=== PATIENT | female | born 1985 | race Caucasian/White ===

== ENCOUNTER → 2016-12-09 | Outpatient (CLI) | payer OTHER ==
[~2016-12-09] MED LIST: DILAUDID2 MG PO; FLINTSTONES COM1 CTB PO; ZANTAC 150150 MG PO
[2016-12-09 12:42] LABS: HEMOGLOBIN 13.8 g/dL (12.2-16.2); LYMPH # 2.8 K/mm3 (0.7-4.5); LYMPH % 26.9 % (10-50.0)
[2016-12-09 14:11] LABS: ABO BLOOD TYPE A; RH BLOOD TYPE POSITIVE
[2016-12-10 06:37] LABS: Rubella Antibodies, IgG 1.91 index (Immune >0.99)
[2016-12-10 08:49] LABS: HBsAg Screen Negative (Negative); HIV Screen 4th Generation wRfx Non Reactive (Non Reactive); Rapid Plasma Reagin, Quant Non Reactive (NonRea<1:1)
== END ==
LOC: LAB 12:20
PROVIDERS: Nurse Practitioner Obstetrics & Gynecology
DX: Z34.80 Encounter for supervision of other normal pregnancy, unspecified trimester (principal)
CPT/HCPCS: G0432

== ENCOUNTER → 2017-03-25 | Outpatient (CLI) | payer OTHER ==
--- NOTE | 2017-03-25 16:26 | RADIOLOGY REPORT PS360 ---
US PREG COMP: INDICATION: 20 WEEK ANATOMICAL SURVEY ORDERING PHYSICIAN: Fabián Lloyd MD PATIENT AGE: 31 years TECHNIQUE: ultrasound transabdominal scanning. COMPARISON: No previous relevant studies. FINDINGS: Single viable intrauterine gestation. Cephalic position. Placenta: Posterior placenta grade 1. There is average amount fluid. The cervix appears satisfactory. Closed and measuring 5 cm in length. Complete survey performed and was unremarkable on the submitted images as in PACS. No discrete anomalies identified on survey imaging by technologist. Active fetus. Three-vessel cord with satisfactory umbilical cord insertion. 4- chamber heart noted. Survey of brain & ventricles. Face and neck survey unremarkable. Diaphragm and chest views unremarkable. Abdomen: Both kidneys noted and unremarkable. Stomach noted and satisfactory. Spine: Survey of the spine satisfactory with no anomalies identified nor imaged. Both arms and legs noted. Amniotic Fluid: Adequate. Maternal adnexa: No significant findings. Measurements: Average ultrasound age 21 weeks 6 days. Gestational Age 20 weeks 6 days. Estimated due date by ultrasound age 907/30/2017. Estimated weight 444 grams. BPD = 21 weeks 6 days OFD = 22 weeks 4 days HC = 21 weeks 5 days AC = 22 weeks 0 days FL = 21 weeks 3 days Heart Rate = 160 bpm Cerebellum = 21 weeks 1 day Humerus = 21 weeks 2 days HC/AC is 1.14. CI is 75%. FL/BPD is 69%. FL/AC is 21%. IMPRESSION: Single live intrauterine gestation is present in cephalic presentation with an average ultrasound age of 21 weeks 6 days. No obvious anomalies evident. Please see above for detail IMPRESSION:
== END ==
LOC: RAD 13:00
DX: Z36 Encounter for antenatal screening of mother (principal)

== ENCOUNTER 2017-07-29 23:59 | Inpatient (IN) | payer OTHER ==
[~2017-07-29] VITALS: Ht 149.9 cm; Wt 70.8 kg
[2017-07-30 05:45] VITALS: BP 135/79
[2017-07-30] MEDS ORDERED: IRON TABLETS325 MG PO (05:53)
[2017-07-30 06:49] LABS: HEMOGLOBIN 12.9 g/dL (12.2-16.2); LYMPH # 2.1 K/mm3 (0.7-4.5); LYMPH % 21.6 % (10-50.0)
[2017-07-30 07:06] LABS: ABO BLOOD TYPE A; RH BLOOD TYPE POSITIVE
--- NOTE | 2017-07-30 08:20 | Operative Note ---
Procedure/Operative Record Procedure Date of procedure: 07/30/17 Pre-Op Dx: Term , previous section, desire for sterilization Post-Op Dx: Term , previous section, desire for sterilization Procedure performed: Repeat lower segment transverse section, bilateral salpingectomy Surgeon: Dr. Fabián Lloyd Extension Clerk(s): Lily Cuenca Anesthesia: Edilson Morton EBL (ml): 600 Clinical note: She is a 32-year-old 2 now para 2 who was 39 weeks gestational age. She' s had a previous section and as result of that was offered repeat lower segment transverse section at term. She also expressed desire for sterilization. The risks and benefits as well as the irreversibility of salpingectomy were discussed with the patient prior to surgery. Operative findings: She delivered a live-born male child at 7:47 AM on the morning of July 30, 2017. The baby had Apgars of 9 at 1 minute and 9 at 5 minutes. PH is currently pending. Ovaries and tubes appeared normal. Operative note: She was taken to the operating room where epidural anesthesia was found be adequate. She was prepped and draped in normal sterile fashion in the supine position with a leftward tilt. A Gray catheter was in the bladder. A Pfannenstiel skin incision was made with knife then carried through to the underlying layer of fascia with cautery. The fascia was opened in the midline with cautery and extended laterally using Butt scissors. Norcross clamps were applied to the superior aspect of the fascial incision which was tented up and the underlying rectus muscles dissected off using cautery. The Abhishek clamps were then applied to the inferior aspect of the fascial incision which in a similar fashion was tented up and the underlying rectus muscles dissected off using cautery. The rectus muscles were then in the midline, the peritoneum identified, and entered sharply with Metzenbaum scissors. This incision was then extended superiorly and inferiorly with cautery. We had good visualization of the bladder inferiorly. The bladder peritoneum was then opened in the midline and extended laterally using Metzenbaum scissors. A bladder flap was created digitally. The lower blade of the Carmina was inserted so as to push the bladder out of the way. Transverse incision was made through the uterine muscle to the amnion. This incision was then extended laterally using fingers traction. The amnion was entered sharply with knife. The 's head was then delivered atraumatically. This was followed by the anterior shoulder and the rest of the infant's body atraumatically. The oropharynx and nasopharynx were bulb suctioned. The infant was then handed off to Dr. Lee who assigned Apgars of 9 at 1 minute and 9 at 5 minutes. We then obtained cord blood as well as cord pH. Using gentle traction on the cord and countertraction on the fundus I was able to easily deliver the placenta intact. It had a normal three-vessel cord. The uterus was then cleared of clots and debris and exteriorized from the abdominal cavity. A sponge forcep was then passed through the cervix to allow drainage. The uterine incision was then closed using running 0 Vicryl suture in a locked fashion. A second layer of the same suture was used to imbricate the first layer. The bladder peritoneum was then closed using running 2-0 Vicryl suture in a locked fashion. I then grasped the RIGHT tube with a Padmini and using cautery and the side of the blade I cut through the RIGHT tube close to the cornua. I then used the back of the blade of the cautery to cauterize along the meso salpinx. I cauterized completely to the distal end of the tube. This was similarly performed on the patient's LEFT side. The gutters and cul-de-sac were then cleared of clots and debris and the uterus was returned the abdominal cavity. Once again hemostasis was assured. The peritoneum was grasped with Dulce clamps and closed using running 2-0 Vicryl suture. The rectus muscles were then reapproximated using running 0 Vicryl suture. The fascia was closed using running #1 Vicryl suture. The subcutaneous tissues were then irrigated with warm water followed by closure Carroll's fascia using running 2-0 Monocryl suture. The skin was closed with elaine. I then cleaned the skin with Hibiclens prior to applying sterile dressings. Sterile dressings were applied. She tolerated the procedure well and was taken to the recovery room in excellent condition. All sponges minute and needle counts were correct. Estimate a blood loss was approximately 600 mL. Conplications: None Specimens: Products of conception, bilateral fallopian tubes at 0819
--- NOTE | 2017-07-30 08:29 | PHARMACY CLINIC NOTE ---
Patient Demographics Patient Demographics Admission date: 07/29/17 Date: 07/30/17 Time: 828 Allergies Coded Allergies: No Known Allergies (07/29/17) HEIGHT- FT: 4 IN: 11.00 K.761 VTE General Information Labs: Laboratory Tests 07/30 0545 Hematology Hgb (12.2 - 16.2 g/dL) 12.9 Hct (37.0 - 47.0 %) 38.7 Plt Count (142 - 424 K/mm3) 311 Disclaimer The following section includes nursing documentation that has been pulled in for pharmacy review. VTE prophylaxis NQF [id number] VTE prophylaxis ordered? Yes Type of prophylaxis/treatment: ICD at 0829
--- NOTE | 2017-07-30 08:36 | Anesthesia Record ---
Anesthesia Record Part I Total IV fluids: 1800 EBL (ml): 600 Urine Output: 400 Units of blood given: 0 B/P: 131/57 % SaO2: 99 Pulse: 88 Resps: 10 Temp: 98.5 Patient is: Awake, Stable Stable to PACU at: 0823 at 0836
--- NOTE | 2017-07-30 08:37 | Anesthesia Record ---
Anesthesia Record Part II Discharge time: 852 Destination: OB PACU nurse assessment review? Yes Patient is: Awake, Stable Anesthesia complications? No at 0819
[2017-07-30 08:55] VITALS: BP 125/68
[2017-07-30 09:33] LABS: URINE BILIRUBIN - DIPSTICK NEGATIVE (NEG); URINE BLOOD NEGATIVE (NEG)
[2017-07-30 21:50] VITALS: BP 145/75
[2017-07-31 06:31] LABS: HEMOGLOBIN 10.5 g/dL (12.2-16.2)
--- NOTE | 2017-07-31 08:59 | ACUTE CARE PROGRESS NOTE (QUA) ---
Progress Notes Subjective Date 07/31/17 Time 0858 Note She is doing very well. She is eating and drinking and ambulating. She is breast -feeding. Her lochia is normal. Patient/family reports: feeling better, no complaints Objective Findings Last VS-Temp:98.3 B/P:145/75 Pulse:90 Resp:18 SaO2:98 ROOM AIR Last weight lbs:156 oz:0 K.761 Method:Stated Laboratory Tests 07/31/17 0610: Hgb 10.5 L, Hct 31.3 L Exam General appearance: normal appearance, alert, awake, no acute distress Reviewed: vital signs, lab results Assessment/Plan Problem List 1. delivery delivered Patient condition Improving, Stable Plan: continue current care This inpt stay is expected to cross 2 MNs from start of care Yes Comments: She is doing very well this morning. We'll plan to send her home in 2 days. at 0859
[2017-07-31 19:48] VITALS: BP 122/85
--- NOTE | 2017-08-01 07:46 | ACUTE CARE PROGRESS NOTE (QUA) ---
Progress Notes Subjective Date 08/01/17 Time 0745 Note She is doing very well this morning. She is eating and drinking and ambulating. She is breast feeding. Her lochia is normal. Patient/family reports: feeling better, no complaints Objective Findings Last VS-Temp:98.0 B/P:122/85 Pulse:87 Resp:17 SaO2:98 ROOM AIR Last weight lbs:156 oz:0 [id number].761 Method:Stated Exam General appearance: normal appearance, alert, awake, no acute distress Reviewed: vital signs, lab results Assessment/Plan Problem List 1. delivery delivered Patient condition Improving, Stable Plan: continue current care This inpt stay is expected to cross 2 MNs from start of care Yes Comments: She is doing very well and we'll plan to send her home tomorrow. at 0765
[2017-08-01 08:35] VITALS: BP 142/78
[2017-08-01 22:44] VITALS: BP 136/79
--- NOTE | 2017-08-02 08:24 | ACUTE CARE PROGRESS NOTE (QUA) ---
Progress Notes Subjective Date 08/02/17 Time 0823 Note She continues to do very well. She is eating and drinking and ambulating. She is breast-feeding. Her lochia is normal. Her pain is well-controlled. Patient/family reports: feeling better, no complaints Objective Findings Last VS-Temp:98.0 B/P:136/79 Pulse:95 Resp:18 SaO2:98 ROOM AIR Last weight lbs:156 oz:0 [id number].761 Method:Stated Exam General appearance: normal appearance, alert, awake, no acute distress Reviewed: vital signs, lab results Assessment/Plan Problem List 1. delivery delivered Patient condition Improving, Stable Plan: continue current care, initiate discharge plan This inpt stay is expected to cross 2 MNs from start of care Yes Comments: She is doing very well and we'll plan to send her home today. at 0823
--- NOTE | 2017-08-02 08:27 | Discharge Summary ---
Discharge Summary Admission date: 07/30/17 Discharge date: 08/02/17 Discharge diagnoses: Term , previous section, desire for sterilization Clinical note: She is a 32-year-old 2 now para 2 who was 39 weeks gestational age. She has had a previous section so was offered repeat lower segment transverse section at term. She also requested a bilateral salpingectomy for family planning. Course in hospital: On July 30, 2017 she underwent a repeat lower segment transverse section and bilateral salpingectomy. She delivered a live-born male child at 7: 47 AM. He weighed 7 lbs. 3 oz. and was 20 inches long. He had Apgars of 9 at 1 minute and 9 at 5 minutes. She has done well postoperatively and has remained afebrile throughout her hospitalization. She is eating and drinking and ambulating. She is breast- feeding. She has a positive blood, she is rubella immune and was group B streptococcus negative. 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 Laboratory Tests 07/30/17 0545: Sodium 135, Potassium 4.2, Chloride 100, Carbon Dioxide 24, BUN 9, Creatinine 0.6, Estimated Creat Clear 149, Estimated GFR (MDRD) 115, Glucose 82, Calcium 9.8, Total Bilirubin 0.3, AST 11, ALT 1, Alkaline Phosphatase 330, Total Protein 6.9, Albumin 3.0, Globulin 3.9, Albumin/Globulin Ratio 0.8, WBC 9.8, RBC 4.51, MCV 85.8, RDW 13.8, Plt Count 311, MPV 9.5, Gran % 71.3, Gran # 7.0, Lymphocytes % 21.6, Monocytes % 5.2, Eosinophils % 1.5, Basophils % 0.3, Lymphocytes # 2.1, Monocytes # 0.5, Eosinophils # 0.2, Basophils # 0.0, PUBS MCHC 33.4, Antibody Screen NEGATIVE, Miscellaneous Test POSITIVE 07/30/17 0545: MCH 28.7 07/30/17 0735: Urine Color STRAW, Urine Appearance CLEAR, Urine pH 6.0, Ur Specific Goessel <= 1.005, Urine Protein NEGATIVE, Urine Ketones NEGATIVE, Urine Blood NEGATIVE, Urine Nitrate NEGATIVE, Urine Bilirubin NEGATIVE, Urine Urobilinogen 0.2, Ur Leukocyte Esterase NEGATIVE, Urine RBC OCC, Urine WBC OCC, Ur Squamous Epith Cells NONE, Urine Bacteria NONE, Urine Glucose NEGATIVE 07/30/17 0808: Cord Blood pH 7.41 07/31/17 0610: Hgb 10.5, Hct 31.3 Plans for ongoing care: She is discharged home to follow-up with me in approximately 2 weeks' time. Discharge medications She'll continue with her vitamins and iron. She was given a prescription for Percocet 5/325, 30 tablets. She will also take ibuprofen. DC/follow-up instructions She was given the usual instructions with respect to limiting her activity, driving and sexual activity. She was given instructions with respect to wound care. Condition at discharge Stable and improved at 0886
[2017-08-02] MEDS ORDERED: PERCOCET 5/3251 EACH PO (08:28)
[2017-08-02 09:34] VITALS: BP 140/74
== END 2017-08-02 10:20 | disposition home or self-care (01) | DRG 766 ==
LOC: NUR 23:59 → OB 23:59 → NUR 23:59 → OB 07-30 05:28 → SDC 07-30 07:30 → EDSTATUS 07-30 07:30 → OB 07-30 07:30
PROVIDERS: Nurse Practitioner Obstetrics & Gynecology
PROC: 0UT70ZZ Resection of Bilateral Fallopian Tubes, Open Approach (ICD-10-PCS; principal; 2017-07-29)
PROC: 10D00Z1 Extraction of Products of Conception, Low, Open Approach (ICD-10-PCS; principal; 2017-07-29)
DX: O34.211 Maternal care for low transverse scar from previous cesarean delivery (principal); N85.8 Other specified noninflammatory disorders of uterus; Z3A.39 39 weeks gestation of pregnancy; Z37.0 Single live birth; Z30.2 Encounter for sterilization
CPT/HCPCS: J2405